=== PATIENT | female | born 1985 ===

== ENCOUNTER 2017-01-13 14:26 | Emergency (ER) | payer OTHER ==
[2017-01-13 14:49] VITALS: BP 121/78; PULSE 80; RESP 18; TEMP 98.3; O2SAT 100
--- NOTE | 2017-01-13 16:03 | C.PDOC ---
History Of Present Illness 31-year-old female, presents to the emergency department with complaints of a bump to left upper lid x several months that is getting bigger in size and skin overlying bump getting red with mild tenderness in the last week. Patient denies fevers or chills. No visual changes. Time Seen by Provider: 01/13/17 15:21 Chief Complaint (Nursing): Eye Problem History Per: Patient History/Exam Limitations: no limitations Onset/Duration Of Symptoms: Days Current Symptoms Are (Timing): Still Present Past Medical History Reviewed: Historical Data, Nursing Documentation, Vital Signs Vital Signs: Last Vital Signs Temp 98.3 F 01/13/17 14:46 Pulse 80 01/13/17 14:46 Resp 18 01/13/17 14:46 BP 121/78 01/13/17 14:46 Pulse Ox 100 01/14/17 13:44 Family History: States: No Known Family Hx - Social History Hx Alcohol Use: No Hx Substance Use: No - Immunization History Hx Tetanus Toxoid Vaccination: No Hx Influenza Vaccination: No Hx Pneumococcal Vaccination: No Review Of Systems Constitutional: Negative for: Fever Eyes: Positive for: Other (swelling and redness to left upper eyelid). Negative for: Vision Change Neurological: Negative for: Headache Physical Exam - Physical Exam Appears: Non-toxic, No Acute Distress Skin: Warm, Dry Eye(s): bilateral: PERRL, EOMI, left: Other (1cm firm round mass, mild erythema , to left upper eyelid w/ forming pustule. (+) tenderness to palpation.) Neurological/Psych: Oriented x3, Normal Speech ED Course And Treatment O2 Sat by Pulse Oximetry: 100 Medical Decision Making Medical Decision Making: Impression: Chalazion Plan: Patient will be discharged home for outpatient f/u with optho. Pt instructed to apply warm compresses several times a day. Given Rx for Keflex. All questions answered. Disposition Counseled Patient/Family Regarding: Diagnosis, Need For Followup, Rx Given - Disposition Referrals: [facility] [Outside] [facility] [Outside] Tom Andersen MD [Staff Provider] - Disposition: HOME/ ROUTINE Disposition Time: 16:00 Condition: STABLE Additional Instructions: Apply warm compresses several times a day. Take antibiotics as prescribed. Follow up with Eye doctor or in Medical clinic in a few days. Prescriptions: Cephalexin [Keflex] 500 mg PO QID #28 capsule Instructions: Chalazion (ED) Forms: Gen Discharge Inst Vietnamese Print Language: POLISH - Clinical Impression Clinical Impression: Chalazion left upper eyelid - Scribe Statement The provider has reviewed the documentation as recorded by the Virginiaibaddis Mckeon All medical record entries made by the Virginiaibe were at my direction and personally dictated by me. I have reviewed the chart and agree that the record accurately reflects my personal performance of the history, physical exam, medical decision making, and the department course for this patient. I have also personally directed, reviewed, and agree with the discharge instructions and disposition.
== END 2017-01-13 16:28 | disposition home or self-care (01) ==
LOC: C.ER 14:26
DX: H00.14 Chalazion left upper eyelid (principal)